=== PATIENT | female | born 1945 | race Caucasian/White ===

== ENCOUNTER 2024-03-01 06:46 | Inpatient (IN) | payer BC, MEDICARE ==
[2024-03-01] MEDS ORDERED: Verapamil 5 MG/2 ML VIAL ONE (06:49)
[2024-03-01] MEDS ORDERED: Adenosine 6 mg (2 mL) VIAL ONE (06:49)
[2024-03-01] MEDS ORDERED: Nitroglycerin 50 MG/250 ML BOT 250 ML ONE ×2 (06:50→07:23)
[2024-03-01] MEDS ORDERED: Heparin 10,000 UNITS/ 10 ML VIAL ONE (06:50)
[2024-03-01] MEDS ORDERED: Metoprolol Tartrate 5 MG (5 mL) VIAL ONE ×2 (06:55→11:42)
[2024-03-01] MEDS ORDERED: Nitroglycerin 2% Ointment 1 INCH/1 GM Packet ONE (06:55)
[2024-03-01] MEDS ORDERED: fentaNYL 50 mcg/mL 1 mL Vial ONE (07:06)
[2024-03-01 07:07] LABS: #Basophils Less than 0.03 10x3/uL (0.0-0.2); %Basophils 0.2 % (0.0-1.0); %Eosinophils 2.2 % (0.0-10.0); %Lymphocytes 35.4 % (21.0-51.0); %Monocytes 12.2 % (0.0-10.0); %Neutrophils 49.8 % (42.0-75.0); Hematocrit 39.1 % (36.0-47.0); Hemoglobin 12.8 g/dL (12.0-16.0); Mean Corpuscular HGB CONC 32.7 g/dL (32.0-36.0); Mean Corpuscular Hemoglobin 28.8 pg (27.0-31.0); Mean Corpuscular Volume 87.9 fL (78.0-98.0); Mean Platelet Volume 10.9 fL (7.4-10.4); Platelet Count 171 10x3/uL (130-400); RBC Distribution Width 13.8 % (11.5-14.5); Red Blood Cell (RBC) Count 4.45 mill/uL (4.20-5.40)
[2024-03-01] MEDS ORDERED: Midazolam HCl 2 mg/2 ml Vial ONE ×5 (07:07→12:57)
[2024-03-01 07:22] LABS: Anion Gap 15 mmol/L (10-20); BUN (Urea Nitrogen) 13 mg/dL (9.8-20.1); Calc. Creatinine Clearance 0 mL/min (70-130); Calcium 8.8 mg/dL (7.8-10.44); Carbon Dioxide 23 mmol/L (23-31); Chloride 107 mmol/L (98-107); Estimated GFR 85; Glucose 142 mg/dL (83-110); Potassium 3.7 mmol/L (3.5-5.1); Sodium 141 mmol/L (136-145)
[2024-03-01 07:27] LABS: Troponin I 0.056 ng/mL (< 0.028)
[2024-03-01] MEDS ORDERED: Bupivacaine PF 0.5% 30 ML VIAL ONE (07:57)
[2024-03-01] MEDS ORDERED: Albumin 5% 500 ML ONE ×2 (07:57→12:24)
[2024-03-01] MEDS ORDERED: EPINEPHrine 1 MG/ML VIAL ONE (07:57)
[2024-03-01] MEDS ORDERED: Dexamethasone 4 mg/ml Vial ONE ×2 (07:57→11:09)
[2024-03-01] MEDS ORDERED: PHENYLEPHRINE-NS 100 MCG/ML 10 ML SYRINGE ONE ×2 (07:57→10:22)
[2024-03-01] MEDS ORDERED: Fentanyl 250 MCG/5 ML VIAL ONE (08:17)
[2024-03-01 08:28] LABS: Hemoglobin A1c 5.2 % (4.0-6.0)
[2024-03-01] MEDS ORDERED: Heparin 10,000 UNITS/1 ML VIAL 30,000 UNITS in Sodium Chloride 0.9% 1,000 ML FS SCH (08:30)
[2024-03-01 08:34] LABS: PTT 27.6 sec (22.9-36.1); Prothrombin Time 12.6 sec (12.0-14.7)
[2024-03-01] MEDS ORDERED: Aminocaproic Acid 5 GM/20 ML VIAL ONE (08:55)
[2024-03-01] MEDS ORDERED: CEFAZOLIN 1 GM VIAL ONE (08:55)
[2024-03-01] MEDS ORDERED: Magnesium 5 GM/10 ML VIAL ONE (08:55)
[2024-03-01] MEDS ORDERED: Protamine Sulfate 250 MG/25 ML VIAL ONE (08:55)
[2024-03-01] MEDS ORDERED: Cardioplegic Soln 1,000 ML BAG ONE (08:55)
[2024-03-01] MEDS ORDERED: Thrombin 5000 UNITS/5 ML VIAL ONE (08:55)
[2024-03-01] MEDS ORDERED: Heparin 30,000 units/30 ml VIAL ONE (08:55)
[2024-03-01] MEDS ORDERED: Mannitol 12.5 GM/50 ML ONE (08:55)
[2024-03-01] MEDS ORDERED: Heparin 5,000 UNITS/ML VIAL ONE (08:55)
[2024-03-01] MEDS ORDERED: Vancomycin 1 GM VIAL ONE (08:55)
[2024-03-01] MEDS ORDERED: Papaverine 60 MG/2 ML VIAL ONE (08:55)
[2024-03-01] MEDS ORDERED: Lidocaine 2% PF 100 mg/5 ml Syringe ONE (08:55)
[2024-03-01] MEDS ORDERED: Calcium Chloride 1 GM/10 ML Abboject SYRINGE ONE (08:55)
[2024-03-01] MEDS ORDERED: Sodium Bicarb 50 mEq/50 ML VIAL ONE (08:55)
[2024-03-01] MEDS ORDERED: Potassium Chloride 60 mEq (30 mL) VIAL ONE (08:55)
[2024-03-01] MEDS ORDERED: CEFAZOLIN 2 GM in Sodium Chloride 0.9% 100 ML IVPB SCH (09:00)
[2024-03-01] MEDS ORDERED: PROPOFOL 20 ML ONE (10:11)
[2024-03-01] MEDS ORDERED: Rocuronium Bromide 10 MG/ML (10ML VIAL) ONE ×2 (10:27→12:57)
[2024-03-01] MEDS ORDERED: ePHEDrine Sulfate 50 MG/10 ML VIAL ONE (11:30)
[2024-03-01] MEDS ORDERED: fentaNYL PF 100 MCG/2 ML SYRINGE ONE ×2 (11:40→12:57)
[2024-03-01] MEDS ORDERED: Vasopressin 20 UNITS/ML VIAL ONE (11:56)
[2024-03-01] MEDS ORDERED: Morphine 2 MG/ML VIAL SLOW IVP PRN (12:44)
[2024-03-01] MEDS ORDERED: Bisacodyl 10 MG SUPP PR PRN (12:44)
[2024-03-01] MEDS ORDERED: Albumin 5% 12.5 GM (250 mL) BOT IVPB PRN (12:44)
[2024-03-01] MEDS ORDERED: traMADol HCl 50 MG TAB PO PRN (12:44)
[2024-03-01] MEDS ORDERED: Nitroglycerin 50 MG/250 ML BOT 250 ML IVPB PRN (12:44)
[2024-03-01] MEDS ORDERED: Bisacodyl 5 MG TAB PO PRN (12:44)
[2024-03-01] MEDS ORDERED: hydrALAZINE 20 MG/ML VIAL SLOW IVP PRN (12:44)
[2024-03-01] MEDS ORDERED: niCARdipine 25 MG in Sodium Chloride 0.9% 250 ML 250 ML IVPB PRN (12:44)
[2024-03-01] MEDS ORDERED: NOREPINEPHRINE 8 MG/250 ML-D5W 250 ML IVPB PRN (12:44)
[2024-03-01] MEDS ORDERED: Ondansetron PF 4 MG/2 ML Vial IVP PRN (12:44)
[2024-03-01] MEDS ORDERED: Promethazine HCl 25 MG/ML VIAL IM PRN (12:44)
[2024-03-01] MEDS ORDERED: Guaifenesin DM 100-10/5 ML UDCUP PO PRN (12:44)
[2024-03-01] MEDS ORDERED: Mag-Al 1200 mg/1200 mg/30 ML UDCUP PO PRN (12:44)
[2024-03-01] MEDS ORDERED: Phenylephrine 40 MG/NS 250 ML 40 MG in Premix 1 BAG IVPB PRN (13:08)
[2024-03-01] MEDS ORDERED: Dextrose 50% Abboject 50 ML SYRINGE SLOW IVP PRN (13:15)
[2024-03-01] MEDS ORDERED: Insulin Regular, Human 100 UNIT/ML 10 ML VIAL SC PRN (13:15)
[2024-03-01] MEDS ORDERED: Glucagon 1 MG/ML KIT SC PRN (13:15)
[2024-03-01] MEDS ORDERED: Dextrose 5% in Water 1,000 ML IV PRN (13:15)
[2024-03-01 13:24] LABS: Base Excess (BEa) -2.9 mEq/L (-2.0 to +3.0); Calcium, Ionized (arterial) 1.18 mmol/L (1.12-1.30); Carboxyhemoglobin (COHb) 0.6 gm% (0.0-3.0); Hematocrit-ABG 30 % (36.0-47.0); Hemoglobin (Hb) 10.3 g/dL (12.0-16.0); O2 Tension (PaO2), arterial 62.9 mmHg (> 70.0); Potassium - ABG Lab 3.64 mmol/L (3.70-5.30); pH, Arterial 7.327 (7.35-7.45)
[2024-03-01 13:25] LABS: Puncture Site Arterial Line
[2024-03-01] MEDS: Ipratropium/Albuterol 3 ML NEB NEB SCH (13:27)
[2024-03-01 13:40] LABS: #Basophils Less than 0.03 10x3/uL (0.0-0.2); #Eosinophils Less than 0.03 10x3/uL (0.0-0.7); %Eosinophils 0.1 % (0.0-10.0); %Lymphocytes 12.2 % (21.0-51.0); %Monocytes 3.3 % (0.0-10.0); %Neutrophils 82.6 % (42.0-75.0); Hematocrit 29.5 % (36.0-47.0); Hemoglobin 9.3 g/dL (12.0-16.0); Mean Corpuscular HGB CONC 31.5 g/dL (32.0-36.0); Mean Corpuscular Hemoglobin 28.7 pg (27.0-31.0); Platelet Count 114 10x3/uL (130-400); RBC Distribution Width 13.7 % (11.5-14.5); Red Blood Cell (RBC) Count 3.24 mill/uL (4.20-5.40)
[2024-03-01 13:44] LABS: Anion Gap 12 mmol/L (10-20); BUN (Urea Nitrogen) 10 mg/dL (9.8-20.1); Calc. Creatinine Clearance 0 mL/min (70-130); Calcium 7.9 mg/dL (7.8-10.44); Carbon Dioxide 22 mmol/L (23-31); Chloride 114 mmol/L (98-107); Estimated GFR 92; Glucose 172 mg/dL (83-110); Potassium 3.7 mmol/L (3.5-5.1); Sodium 144 mmol/L (136-145)
[2024-03-01 13:47] LABS: INR-International Normal Ratio 1.3; PTT 32.8 sec (22.9-36.1); Prothrombin Time 16.5 sec (12.0-14.7)
[2024-03-01] MEDS ORDERED: Iopamidol 370 76% 100 ML VIAL ONE (13:57)
[2024-03-01] MEDS: Magnesium 2 GM/50 ML(in water) 2 GM in Premix 1 BAG IVPB SCH (13:59)
[2024-03-01] MEDS: NS 0.9% w/ 20 MEQ KCL 1,000 ML IV SCH (14:01)
[2024-03-01] MEDS: INSULIN REGULAR IN 0.9 % NACL 100 UNITS in Premix 1 BAG IVPB SCH (14:01)
[2024-03-01 14:02] LABS: Burr Cells SLIGHT = 2-5 cells HPF (0-1); Platelet Adequacy Comment Platelets Decreased; Polychromasia SLIGHT = 2-3 cells HPF (0-2)
[2024-03-01] MEDS: Post-Op Insulin Drip Protocol IVPB ONE (14:02)
[2024-03-01 14:32] LABS: Cardiac Risk 4.2 (Less than 4.5)
[2024-03-01] MEDS: Potassium Chloride 20 MEQ (100 mL) BAG IVPB PRN (14:42)
[2024-03-01 15:40] VITALS: BMI 36.5
[2024-03-01] MEDS: Albumin 5% 12.5 GM (250 mL) BOT IVPB PRN (15:44)
[2024-03-01] MEDS: CEFAZOLIN 2 GM in Sodium Chloride 0.9% 100 ML IVPB SCH (17:24)
[2024-03-01 17:25] LABS: Actual Bicarbonate (HCO3a) 20.7 mEq/L (22-28); Base Excess (BEa) -3.2 mEq/L (-2.0 to +3.0); CO2 Tension 33.1 mmHg (35.0-45.0); Carboxyhemoglobin (COHb) 0.6 gm% (0.0-3.0); Hematocrit-ABG 30 % (36.0-47.0); Hemoglobin (Hb) 10.2 g/dL (12.0-16.0); O2 Tension (PaO2), arterial 96.3 mmHg (> 70.0); Potassium - ABG Lab 3.98 mmol/L (3.70-5.30); pH, Arterial 7.414 (7.35-7.45)
[2024-03-01 17:26] LABS: ALV-art Gradient 147.525 mmHg (0-20); Puncture Site Arterial Line
[2024-03-01 18:08] LABS: Hematocrit 28.8 % (36.0-47.0); Hemoglobin 9.4 g/dL (12.0-16.0)
[2024-03-01] MEDS: fentaNYL 50 mcg/mL 1 mL Vial SLOW IVP PRN ×2 (18:24→21:17)
[2024-03-01] MEDS: traMADol HCl 50 MG TAB PO PRN (20:27)
[2024-03-01] MEDS: Famotidine/PF 20 mg/2ml Vial SLOW IVP SCH (21:16)
[2024-03-01] MEDS: Atorvastatin Calcium 20 MG TAB PO SCH (21:17)
[2024-03-02 04:37] LABS: #Basophils Less than 0.03 10x3/uL (0.0-0.2); #Eosinophils Less than 0.03 10x3/uL (0.0-0.7); %Basophils 0.1 % (0.0-1.0); %Lymphocytes 4.9 % (21.0-51.0); %Monocytes 5.2 % (0.0-10.0); %Neutrophils 89.4 % (42.0-75.0); Hematocrit 28.4 % (36.0-47.0); Hemoglobin 9.4 g/dL (12.0-16.0); Mean Corpuscular HGB CONC 33.1 g/dL (32.0-36.0); Mean Corpuscular Hemoglobin 29.4 pg (27.0-31.0); Mean Corpuscular Volume 88.8 fL (78.0-98.0); Mean Platelet Volume 11.3 fL (7.4-10.4); Platelet Count 145 10x3/uL (130-400); RBC Distribution Width 14.2 % (11.5-14.5)
[2024-03-02 05:10] LABS: Anion Gap 13 mmol/L (10-20); BUN (Urea Nitrogen) 9 mg/dL (9.8-20.1); Calc. Creatinine Clearance 112 mL/min (70-130); Calcium 7.6 mg/dL (7.8-10.44); Carbon Dioxide 17 mmol/L (23-31); Chloride 116 mmol/L (98-107); Estimated GFR 91; Glucose 141 mg/dL (83-110); Potassium 4.4 mmol/L (3.5-5.1); Sodium 142 mmol/L (136-145)
[2024-03-02] MEDS: Magnesium 2 GM/50 ML(in water) 2 GM in Premix 1 BAG IVPB SCH (08:40)
[2024-03-02] MEDS: Aspirin Chewable 81 MG TAB PO SCH (08:40)
[2024-03-02] MEDS: Metoprolol Tartrate 25 MG TAB PO SCH (08:46)
[2024-03-02] MEDS: HYDROcodone/Acetaminophen 5/325 mg Tablet PO PRN (09:09)
[2024-03-02] MEDS ORDERED: Insulin Glargine 30 UNITS/0.3 ML VIAL SC PRN (13:08)
[2024-03-02 14:42] VITALS: BMI 35.2
[2024-03-02] MEDS: Acetaminophen 325 MG TAB PO PRN (17:40)
[2024-03-02] MEDS ORDERED: Albumin 5% 12.5 GM (250 mL) BOT IVPB PRN (18:17)
[2024-03-02] MEDS: Famotidine 20 MG TAB PO SCH (21:16)
[2024-03-02] MEDS: Zolpidem Tartrate 5 MG TAB PO PRN (22:34)
[2024-03-03 04:22] LABS: #Basophils Less than 0.03 10x3/uL (0.0-0.2); %Basophils 0.1 % (0.0-1.0); %Eosinophils 0.6 % (0.0-10.0); %Lymphocytes 12.9 % (21.0-51.0); %Monocytes 10.1 % (0.0-10.0); %Neutrophils 75.8 % (42.0-75.0); Hematocrit 26.8 % (36.0-47.0); Hemoglobin 8.4 g/dL (12.0-16.0); Mean Corpuscular HGB CONC 31.3 g/dL (32.0-36.0); Mean Corpuscular Hemoglobin 29.2 pg (27.0-31.0); Mean Corpuscular Volume 93.1 fL (78.0-98.0); Mean Platelet Volume 11.5 fL (7.4-10.4); Platelet Count 167 10x3/uL (130-400); RBC Distribution Width 14.9 % (11.5-14.5); Red Blood Cell (RBC) Count 2.88 mill/uL (4.20-5.40)
[2024-03-03 04:37] LABS: Phosphorus 2.5 mg/dL (2.3-4.7)
[2024-03-03 04:39] LABS: Anion Gap 12 mmol/L (10-20); BUN (Urea Nitrogen) 22 mg/dL (9.8-20.1); Calc. Creatinine Clearance 89 mL/min (70-130); Calcium 8.1 mg/dL (7.8-10.44); Carbon Dioxide 18 mmol/L (23-31); Chloride 112 mmol/L (98-107); Estimated GFR 76; Glucose 130 mg/dL (83-110); Magnesium 2.7 mg/dL (1.6-2.6); Potassium 4.8 mmol/L (3.5-5.1); Sodium 137 mmol/L (136-145)
[2024-03-03] MEDS: Furosemide 20 MG TAB PO SCH (12:15)
[2024-03-04 04:14] LABS: #Basophils Less than 0.03 10x3/uL (0.0-0.2); %Eosinophils 1.1 % (0.0-10.0); %Lymphocytes 16.5 % (21.0-51.0); %Monocytes 8.2 % (0.0-10.0); %Neutrophils 73.5 % (42.0-75.0); Hematocrit 25.7 % (36.0-47.0); Hemoglobin 8.2 g/dL (12.0-16.0); Mean Corpuscular HGB CONC 31.9 g/dL (32.0-36.0); Mean Corpuscular Volume 90.8 fL (78.0-98.0); Mean Platelet Volume 11.2 fL (7.4-10.4); Platelet Count 170 10x3/uL (130-400); RBC Distribution Width 14.5 % (11.5-14.5); Red Blood Cell (RBC) Count 2.83 mill/uL (4.20-5.40)
[2024-03-04 04:52] LABS: Anion Gap 13 mmol/L (10-20); BUN (Urea Nitrogen) 22 mg/dL (9.8-20.1); Calc. Creatinine Clearance 106 mL/min (70-130); Calcium 8.1 mg/dL (7.8-10.44); Carbon Dioxide 19 mmol/L (23-31); Chloride 107 mmol/L (98-107); Estimated GFR 90; Glucose 123 mg/dL (83-110); Potassium 3.8 mmol/L (3.5-5.1); Sodium 135 mmol/L (136-145)
[2024-03-04 05:15] LABS: Phosphorus 1.7 mg/dL (2.3-4.7)
[2024-03-04] MEDS: Furosemide 40 MG TAB PO SCH (08:00)
[2024-03-05 04:57] LABS: #Basophils Less than 0.03 10x3/uL (0.0-0.2); %Basophils 0.1 % (0.0-1.0); %Eosinophils 1.9 % (0.0-10.0); %Lymphocytes 16.4 % (21.0-51.0); %Monocytes 11.8 % (0.0-10.0); %Neutrophils 69.3 % (42.0-75.0); Hematocrit 24.3 % (36.0-47.0); Hemoglobin 7.9 g/dL (12.0-16.0); Mean Corpuscular HGB CONC 32.5 g/dL (32.0-36.0); Mean Corpuscular Hemoglobin 29.5 pg (27.0-31.0); Mean Corpuscular Volume 90.7 fL (78.0-98.0); Mean Platelet Volume 10.9 fL (7.4-10.4); Platelet Count 185 10x3/uL (130-400); RBC Distribution Width 14.4 % (11.5-14.5); Red Blood Cell (RBC) Count 2.68 mill/uL (4.20-5.40)
[2024-03-05 05:15] LABS: Anion Gap 12 mmol/L (10-20); BUN (Urea Nitrogen) 15 mg/dL (9.8-20.1); Calc. Creatinine Clearance 115 mL/min (70-130); Calcium 8.1 mg/dL (7.8-10.44); Carbon Dioxide 25 mmol/L (23-31); Chloride 106 mmol/L (98-107); Estimated GFR 92; Glucose 102 mg/dL (83-110); Potassium 3.3 mmol/L (3.5-5.1); Sodium 140 mmol/L (136-145)
[2024-03-05 07:15] LABS: Magnesium 1.9 mg/dL (1.6-2.6)
[2024-03-05 07:26] LABS: Phosphorus 2.2 mg/dL (2.3-4.7)
[2024-03-05] MEDS: Senokot S 8.6-50 MG TAB PO SCH (08:09)
[2024-03-05] MEDS: Furosemide 40 MG (4 mL) VIAL SLOW IVP SCH (08:10)
[2024-03-05] MEDS: Potassium Chloride 20 MEQ TAB PO SCH (08:10)
[2024-03-05] MEDS: K-Phos Neutral 250 MG TAB PO SCH ×2 (08:33→15:55)
[2024-03-05] MEDS: Magnesium 2 GM/50 ML(in water) 2 GM in Premix 1 BAG IVPB SCH (09:45)
[2024-03-05] MEDS: Amiodarone 150 MG, Admixture Fee 1 EACH in Dextrose 5% in Water 100 ML IVPB SCH (13:01)
[2024-03-05] MEDS: Amiodarone 450 MG, Admixture Fee 1 EACH in Dextrose 5% in Water 250 ML IVPB SCH (13:10)
[2024-03-06 04:34] LABS: #Basophils Less than 0.03 10x3/uL (0.0-0.2); %Basophils 0.2 % (0.0-1.0); %Eosinophils 2.3 % (0.0-10.0); %Lymphocytes 19.8 % (21.0-51.0); %Monocytes 12.9 % (0.0-10.0); %Neutrophils 63.8 % (42.0-75.0); Hemoglobin 9.7 g/dL (12.0-16.0); Mean Corpuscular HGB CONC 32.3 g/dL (32.0-36.0); Mean Corpuscular Hemoglobin 28.7 pg (27.0-31.0); Mean Corpuscular Volume 88.8 fL (78.0-98.0); Mean Platelet Volume 10.6 fL (7.4-10.4); Platelet Count 299 10x3/uL (130-400); Red Blood Cell (RBC) Count 3.38 mill/uL (4.20-5.40)
[2024-03-06 05:04] LABS: Anion Gap 14 mmol/L (10-20); BUN (Urea Nitrogen) 15 mg/dL (9.8-20.1); Calc. Creatinine Clearance 96 mL/min (70-130); Calcium 8.6 mg/dL (7.8-10.44); Carbon Dioxide 28 mmol/L (23-31); Chloride 98 mmol/L (98-107); Estimated GFR 83; Glucose 125 mg/dL (83-110); Magnesium 2.1 mg/dL (1.6-2.6); Potassium 3.1 mmol/L (3.5-5.1); Sodium 137 mmol/L (136-145)
[2024-03-06 05:13] LABS: Phosphorus 3.1 mg/dL (2.3-4.7)
[2024-03-06] MEDS: Amiodarone 200 MG TAB PO SCH (09:25)
[2024-03-06] MEDS: Potassium Chloride 20 MEQ TAB PO SCH (09:26)
[2024-03-06] MEDS: Empagliflozin 10 MG TAB PO SCH (09:26)
[2024-03-06] MEDS: Furosemide 40 MG TAB PO SCH (09:26)
[2024-03-06] MEDS: Losartan 25 MG TAB PO SCH (09:27)
[2024-03-06] MEDS: Zolpidem Tartrate 5 MG TAB PO PRN (21:58)
[2024-03-07 04:35] LABS: #Basophils Less than 0.03 10x3/uL (0.0-0.2); %Basophils 0.1 % (0.0-1.0); %Eosinophils 3.7 % (0.0-10.0); %Lymphocytes 21.4 % (21.0-51.0); %Monocytes 13.2 % (0.0-10.0); %Neutrophils 60.9 % (42.0-75.0); Hematocrit 25.7 % (36.0-47.0); Hemoglobin 8.2 g/dL (12.0-16.0); Mean Corpuscular HGB CONC 31.9 g/dL (32.0-36.0); Mean Corpuscular Hemoglobin 28.7 pg (27.0-31.0); Mean Corpuscular Volume 89.9 fL (78.0-98.0); Mean Platelet Volume 10.8 fL (7.4-10.4); Platelet Count 229 10x3/uL (130-400); Red Blood Cell (RBC) Count 2.86 mill/uL (4.20-5.40)
[2024-03-07 05:00] LABS: Anion Gap 13 mmol/L (10-20); BUN (Urea Nitrogen) 19 mg/dL (9.8-20.1); Calc. Creatinine Clearance 89 mL/min (70-130); Calcium 8.2 mg/dL (7.8-10.44); Carbon Dioxide 28 mmol/L (23-31); Chloride 103 mmol/L (98-107); Estimated GFR 78; Glucose 115 mg/dL (83-110); Magnesium 2.1 mg/dL (1.6-2.6); Potassium 3.2 mmol/L (3.5-5.1); Sodium 141 mmol/L (136-145)
[2024-03-07 05:02] LABS: Phosphorus 3.9 mg/dL (2.3-4.7)
[2024-03-08 04:44] LABS: #Basophils Less than 0.03 10x3/uL (0.0-0.2); %Basophils 0.1 % (0.0-1.0); %Eosinophils 3.3 % (0.0-10.0); %Lymphocytes 27.2 % (21.0-51.0); %Monocytes 11.8 % (0.0-10.0); %Neutrophils 56.7 % (42.0-75.0); Hematocrit 26.1 % (36.0-47.0); Hemoglobin 8.3 g/dL (12.0-16.0); Mean Corpuscular HGB CONC 31.8 g/dL (32.0-36.0); Mean Corpuscular Volume 91.3 fL (78.0-98.0); Mean Platelet Volume 10.5 fL (7.4-10.4); Platelet Count 241 10x3/uL (130-400); RBC Distribution Width 14.5 % (11.5-14.5); Red Blood Cell (RBC) Count 2.86 mill/uL (4.20-5.40)
[2024-03-08 05:19] LABS: Anion Gap 14 mmol/L (10-20); BUN (Urea Nitrogen) 15 mg/dL (9.8-20.1); Calc. Creatinine Clearance 87 mL/min (70-130); Calcium 8.2 mg/dL (7.8-10.44); Carbon Dioxide 29 mmol/L (23-31); Chloride 104 mmol/L (98-107); Estimated GFR 76; Glucose 102 mg/dL (83-110); Potassium 3.9 mmol/L (3.5-5.1); Sodium 143 mmol/L (136-145)
[2024-03-08 12:32] VITALS: TEMP 97.9
[2024-03-08 15:31] VITALS: BP 114/57
[2024-03-08] MEDS ORDERED: Atorvastatin Calcium 20 MG TAB PO SCH (21:00)
[2024-03-13 14:31] LABS: Actual Bicarbonate (HCO3a) 21.6 mEq/L (22-28); Analyzer IN Cardio OR; Base Excess (BEa) -4.1 mEq/L (-2.0 to +3.0); Calcium, Ionized (arterial) 1.11 mmol/L (1.12-1.30); Carboxyhemoglobin (COHb) 0.1 gm% (0.0-3.0); Hematocrit-ABG 35 % (36.0-47.0); Hemoglobin (Hb) 11.8 g/dL (12.0-16.0); O2 Tension (PaO2), arterial 141.3 mmHg (> 70.0); Potassium - ABG Lab 3.44 mmol/L (3.70-5.30); pH, Arterial 7.329 (7.35-7.45)
[2024-03-13 14:31] LABS: Actual Bicarbonate (HCO3a) 19.7 mEq/L (22-28); Analyzer IN Cardio OR; Base Excess (BEa) -4.4 mEq/L (-2.0 to +3.0); CO2 Tension 33.1 mmHg (35.0-45.0); Calcium, Ionized (arterial) 1.09 mmol/L (1.12-1.30); Carboxyhemoglobin (COHb) 0.3 gm% (0.0-3.0); Hematocrit-ABG 34 % (36.0-47.0); Hemoglobin (Hb) 11.6 g/dL (12.0-16.0); O2 Tension (PaO2), arterial 146.7 mmHg (> 70.0); Potassium - ABG Lab 3.57 mmol/L (3.70-5.30); pH, Arterial 7.393 (7.35-7.45)
[2024-03-13 14:32] LABS: Actual Bicarbonate (HCO3v) 22.3 mEq/L (22-28); Analyzer IN Cardio OR; Base Excess -3.3 mEq/L (-2.0 to +3.0); Calcium, Ionized (venous) 1.02 mmol/L (1.16-1.32); Chloride (VBG) 106 mmol/L (98-106); Hematocrit-VBG 24 % (36.0-47.0); Hemoglobin (Hb) 8.1 g/dL (11.7-16.1); Potassium (VBG) 4.89 mmol/L (3.70-5.30); Sodium 136 mmol/L (133-146); pH (venous) 7.338 (7.32-7.43)
[2024-03-13 14:32] LABS: Actual Bicarbonate (HCO3a) 23.2 mEq/L (22-28); Analyzer IN Cardio OR; Base Excess (BEa) -2.9 mEq/L (-2.0 to +3.0); CO2 Tension 46.4 mmHg (35.0-45.0); Calcium, Ionized (arterial) 1.03 mmol/L (1.12-1.30); Carboxyhemoglobin (COHb) 0.1 gm% (0.0-3.0); Hematocrit-ABG 25 % (36.0-47.0); Hemoglobin (Hb) 8.5 g/dL (12.0-16.0); O2 Tension (PaO2), arterial 361.5 mmHg (> 70.0); Potassium - ABG Lab 4.68 mmol/L (3.70-5.30); pH, Arterial 7.317 (7.35-7.45)
[2024-03-13 14:32] LABS: Analyzer IN Cardio OR; Calcium, Ionized (arterial) 1.26 mmol/L (1.12-1.30); Carboxyhemoglobin (COHb) 0.1 gm% (0.0-3.0); Hematocrit-ABG 31 % (36.0-47.0); Hemoglobin (Hb) 10.5 g/dL (12.0-16.0); O2 Tension (PaO2), arterial 80.4 mmHg (> 70.0); Potassium - ABG Lab 3.77 mmol/L (3.70-5.30); pH, Arterial 7.351 (7.35-7.45)
[2024-03-13 14:32] LABS: Actual Bicarbonate (HCO3a) 22.5 mEq/L (22-28); Analyzer IN Cardio OR; Base Excess (BEa) -1.1 mEq/L (-2.0 to +3.0); CO2 Tension 32.3 mmHg (35.0-45.0); Calcium, Ionized (arterial) 0.95 mmol/L (1.12-1.30); Carboxyhemoglobin (COHb) 0.4 gm% (0.0-3.0); Hematocrit-ABG 23 % (36.0-47.0); Hemoglobin (Hb) 7.8 g/dL (12.0-16.0); O2 Tension (PaO2), arterial 400.6 mmHg (> 70.0); Potassium - ABG Lab 4.46 mmol/L (3.70-5.30)
[2024-03-13 14:33] LABS: Analyzer IN Cardio OR; Base Excess (BEa) -5.9 mEq/L (-2.0 to +3.0); CO2 Tension 35.2 mmHg (35.0-45.0); Calcium, Ionized (arterial) 1.21 mmol/L (1.12-1.30); Carboxyhemoglobin (COHb) 0.4 gm% (0.0-3.0); Hematocrit-ABG 33 % (36.0-47.0); Hemoglobin (Hb) 11.2 g/dL (12.0-16.0); Potassium - ABG Lab 3.68 mmol/L (3.70-5.30); pH, Arterial 7.349 (7.35-7.45)
[2024-03-13 14:34] LABS: Puncture Site Arterial Line
[2024-03-13 14:34] LABS: O2 Tension (PaO2), arterial 56.1 mmHg (> 70.0); Puncture Site Arterial Line
[2024-03-13 14:37] LABS: Puncture Site Arterial Line
[2024-03-13 14:37] LABS: Puncture Site Arterial Line
[2024-03-13 14:37] LABS: Puncture Site Arterial Line
[2024-03-13 14:38] LABS: Puncture Site Arterial Line
== END 2024-03-08 15:55 | disposition home or self-care (01) | DRG 232 ==
LOC: ERS 06:46 → SDC 06:58 → CCU 11:56 → 2NO 03-03 15:51
PROVIDERS: ADMIT Internal Medicine Cardiovascular Disease; ATTEND Internal Medicine Cardiovascular Disease
PROC: 02100Z9 Bypass Coronary Artery, One Artery from Left Internal Mammary, Open Approach (ICD-10-PCS; principal; 2024-03-01)
PROC: 02703ZZ Dilation of Coronary Artery, One Artery, Percutaneous Approach (ICD-10-PCS; 2024-03-01)
PROC: 021 Heart and Great Vessels, Bypass (ICD-10-PCS; 2024-03-01)
PROC: 06BQ4ZZ Excision of Left Saphenous Vein, Percutaneous Endoscopic Approach (ICD-10-PCS; 2024-03-01)
PROC: 4A023N7 Measurement of Cardiac Sampling and Pressure, Left Heart, Percutaneous Approach (ICD-10-PCS; 2024-03-01)
PROC: B2111ZZ Fluoroscopy of Multiple Coronary Arteries using Low Osmolar Contrast (ICD-10-PCS; 2024-03-01)
PROC: 02L70CK Occlusion of Left Atrial Appendage with Extraluminal Device, Open Approach (ICD-10-PCS; 2024-03-01)
PROC: 5A1221Z Performance of Cardiac Output, Continuous (ICD-10-PCS; 2024-03-01)
PROC: 4A133R1 Monitoring of Arterial Saturation, Peripheral, Percutaneous Approach (ICD-10-PCS; 2024-03-01)
DX: I21.09 ST elevation (STEMI) myocardial infarction involving other coronary artery of anterior wall (principal); D68.9 Coagulation defect, unspecified; I11.0 Hypertensive heart disease with heart failure; I50.9 Heart failure, unspecified; I48.91 Unspecified atrial fibrillation; D64.9 Anemia, unspecified; I25.110 Atherosclerotic heart disease of native coronary artery with unstable angina pectoris; R41.0 Disorientation, unspecified; E66.9 Obesity, unspecified; F17.210 Nicotine dependence, cigarettes, uncomplicated; Z90.710 Acquired absence of both cervix and uterus; Z85.828 Personal history of other malignant neoplasm of skin; Z68.35 Body mass index [BMI] 35.0-35.9, adult; E87.70 Fluid overload, unspecified
CPT/HCPCS: 36140; 36415; 36416; 36430; 71045; 80048; 80061; 82805; 83036; 83735; 84100; 84484; 85025; 85347; 85610; 85730; 86850; 86900; 86901; 92941; 93005; 93010; 93306; 93454; 93798; 94002; 94640; 94760; 99152; 99153; A4311; A4648; C1751; C1769; C1887; C1889; C1894; J0153; J0171; J0282; J0665; J0690; J1100; J1643; J1644; J1815; J1940; J2003; J2150; J2250; J2440; J2704; J2720; J3010; J3370; J3475; J3480; J3490; J7030; J7070; J7620; P9045; Q9967; S0017